=== PATIENT | male | born 1940 | race Caucasian/White ===

== ENCOUNTER 2017-12-14 15:45 | Inpatient (IN) | payer MEDICARE, OTHER ==
[2017-12-14] MEDS: SOD CHLORIDE 0.9% 1,000 ML IV (16:31)
[2017-12-14 16:41] LABS: ADD MAN DIFF? NO
[2017-12-14 16:43] LABS: BASOPHILS % 0.3 % (0.0-2.0); EOSINOPHILS # 0.1 10^3/ul (0.0-0.5); EOSINOPHILS % 0.4 % (0.0-7.0); HEMATOCRIT 32.1 % (42.0-52.0); HEMOGLOBIN 10.8 g/dl (14.0-18.0); LYMPHOCYTES # 2.5 10^3/ul (0.8-2.9); LYMPHOCYTES % 19.8 % (15.0-51.0); MEAN CORPUSCULAR HEMOGLOBIN 30.1 pg (29.0-33.0); MEAN CORPUSCULAR HGB CONC 33.6 g/dl (32.0-37.0); MEAN CORPUSCULAR VOLUME 89.4 fl (82.0-101.0); MEAN PLATELET VOLUME 11.6 fl (7.4-10.4); MONOCYTES % 7.7 % (0.0-11.0); NEUTROPHILS % 71.4 % (39.0-77.0); PLATELET COUNT 145 10^3/UL (140-415); RED BLOOD COUNT 3.59 10^6/ul (4.70-6.10); RED CELL DISTRIBUTION WIDTH 13.7 % (11.5-14.5)
[2017-12-14 16:43] LABS: WHITE BLOOD COUNT 12.6 10^3/ul (4.8-10.8)
[2017-12-14 16:59] LABS: INR 1.21; PROTIME 15.5 Sec (11.9-14.9); PT RATIO 1.2
[2017-12-14 17:00] LABS: PARTIAL THROMBOPLASTIN TIME 30.6 Sec (25.0-35.0)
[2017-12-14] MEDS ORDERED: AZELASTINE 0.05% 6 ML OPH BOTH EYES (17:30)
[2017-12-14 17:31] LABS: TROPONIN-I 0.038 ng/ml (0.00-0.12)
[2017-12-14 17:34] LABS: ANION GAP 19 (8-16); BLOOD UREA NITROGEN 39 mg/dl (7-20); CARBON DIOXIDE 24 mmol/L (21-31); CHLORIDE 108 mmol/L (97-110); CREATININE 1.83 mg/dl (0.61-1.24); GLUCOSE 228 mg/dl (70-220); POTASSIUM 4.9 mmol/L (3.5-5.1); SODIUM 146 mmol/L (135-144)
[2017-12-14 18:25] LABS: ADD UMIC YES; UR ASCORBIC ACID NEGATIVE (NEGATIVE); UR BACTERIA FEW /HPF (NONE SEEN); UR BILIRUBIN (Dip) NEGATIVE (NEGATIVE); UR BLOOD (Dip) 1+ mg/dL (NEGATIVE); UR CLARITY CLOUDY (CLEAR); UR COLOR YELLOW (YELLOW); UR GLUCOSE (Dip) 1+ mg/dL (NEGATIVE); UR KETONES (Dip) NEGATIVE (NEGATIVE); UR LEUKOCYTE ESTERASE (Dip) 3+ Leu/ul (NEGATIVE); UR NITRITE (Dip) NEGATIVE (NEGATIVE); UR RBC 1 /HPF (0-5); UR SPECIFIC GRAVITY (Dip) 1.015 (1.003-1.030); UR TOTAL PROTEIN (Dip) 2+ mg/dl (NEGATIVE); UR UROBILINOGEN (Dip) NEGATIVE (NEGATIVE); UR WBC 178 /HPF (0-5)
[2017-12-14] MEDS ORDERED: ACETAMINOPHEN 325 MG TAB PO (18:30)
[2017-12-14] MEDS ORDERED: NA PHOSPHATE/BIPHOS 133 ML ENEMA PR (18:30)
[2017-12-14] MEDS ORDERED: MAGNESIUM HYDROXIDE 30ML CUP PO (18:30)
[2017-12-14] MEDS ORDERED: BISACODYL (EC) 5 MG TAB PO (18:30)
[2017-12-14] MEDS ORDERED: NACL 0.9% 3 ML SYG IV (18:30)
[2017-12-14] MEDS ORDERED: BISACODYL 10 MG SUPP PR (18:30)
[2017-12-14] MEDS ORDERED: ONDANSETRON 4 MG TAB PO (18:30)
[2017-12-14] MEDS ORDERED: DOCUSATE SODIUM 100 MG CAP PO (18:30)
[2017-12-14] MEDS ORDERED: DEXTROSE 50% 50 ML SYRINGE IV ×2 (19:30)
[2017-12-14] MEDS ORDERED: GLUCOSE GEL 15 GRAM TUBE PO ×2 (19:30)
[2017-12-14] MEDS ORDERED: GLUCOSE GEL 15 GRAM TUBE BUCCAL (19:30)
[2017-12-14] MEDS ORDERED: GLUCAGON 1 MG INJ IM (19:30)
[2017-12-14 19:40] LABS: CREATININE,URINE RANDOM 191.21 mg/dl (20-370)
[2017-12-14] MEDS: INSULIN ASPART [NOVOLOG] 3 ML PEN SC (21:28)
[2017-12-14] MEDS: FISH OIL 1,000 MG CAP PO (21:30)
[2017-12-14] MEDS: ATORVASTATIN 80 MG TAB PO (21:30)
[2017-12-14] MEDS: morphine 2 MG INJ IV (23:09)
[2017-12-15] MEDS: ACCU-CHEK XX (02:00)
[2017-12-15] MEDS: CEFTRIAXONE 1 GM/50 ML (PMX) 50 ML IVPB (02:08)
[2017-12-15] MEDS: morphine 2 MG INJ IV (03:33)
[2017-12-15 06:43] LABS: ADD MAN DIFF? NO
[2017-12-15 06:47] LABS: BASOPHIL # 0.1 10^3/ul (0.0-0.1); BASOPHILS % 0.4 % (0.0-2.0); EOSINOPHILS # 0.1 10^3/ul (0.0-0.5); EOSINOPHILS % 0.6 % (0.0-7.0); HEMOGLOBIN 9.9 g/dl (14.0-18.0); LYMPHOCYTES # 2.4 10^3/ul (0.8-2.9); LYMPHOCYTES % 21.7 % (15.0-51.0); MEAN CORPUSCULAR HEMOGLOBIN 29.8 pg (29.0-33.0); MEAN CORPUSCULAR VOLUME 90.4 fl (82.0-101.0); MEAN PLATELET VOLUME 12.2 fl (7.4-10.4); MONOCYTE # 0.8 10^3/ul (0.3-0.9); MONOCYTES % 6.9 % (0.0-11.0); NEUTROPHIL # 7.8 10^3/ul (1.6-7.5); PLATELET COUNT 148 10^3/UL (140-415); RED BLOOD COUNT 3.32 10^6/ul (4.70-6.10); RED CELL DISTRIBUTION WIDTH 14.1 % (11.5-14.5)
[2017-12-15 06:47] LABS: WHITE BLOOD COUNT 11.2 10^3/ul (4.8-10.8)
[2017-12-15 07:08] LABS: ANION GAP 16 (8-16); BLOOD UREA NITROGEN 46 mg/dl (7-20); CALCIUM 8.7 mg/dl (8.4-10.2); CARBON DIOXIDE 26 mmol/L (21-31); CHLORIDE 110 mmol/L (97-110); CREATININE 1.76 mg/dl (0.61-1.24); GLUCOSE 181 mg/dl (70-220); MAGNESIUM 1.7 mg/dl (1.7-2.5); PHOSPHORUS 3.8 mg/dl (2.5-4.9); POTASSIUM 5.4 mmol/L (3.5-5.1); SODIUM 147 mmol/L (135-144)
[2017-12-15 07:23] LABS: HEMOGLOBIN A1C 6.4 % (0-5.9)
[2017-12-15] MEDS: INSULIN ASPART [NOVOLOG] 3 ML PEN SC ×4 (09:07→21:20)
[2017-12-15] MEDS: ENOXAPARIN 40 MG/0.4 ML SYG SC (09:08)
[2017-12-15] MEDS: ASPIRIN (EC) 81 MG TAB PO (09:08)
[2017-12-15] MEDS: FISH OIL 1,000 MG CAP PO ×3 (09:08→21:21)
[2017-12-15] MEDS: TOLTERODINE (SR) 4 MG CAP PO (09:09)
[2017-12-15] MEDS: VALSARTAN 160 MG TAB PO (09:09)
[2017-12-15] MEDS: SOD CHLORIDE 0.9% 1,000 ML IV (16:44)
[2017-12-15] MEDS: HYDROCODONE/APAP (5/325) TAB PO (16:45)
[2017-12-15 17:24] LABS: SODIUM,URINE RANDOM 56 mmol/L (30-90)
[2017-12-15 17:35] LABS: ADD UMIC YES; UR ASCORBIC ACID NEGATIVE (NEGATIVE); UR BILIRUBIN (Dip) NEGATIVE (NEGATIVE); UR BLOOD (Dip) 3+ mg/dL (NEGATIVE); UR CLARITY TURBID (CLEAR); UR COLOR RED (YELLOW); UR GLUCOSE (Dip) 1+ mg/dL (NEGATIVE); UR KETONES (Dip) NEGATIVE (NEGATIVE); UR LEUKOCYTE ESTERASE (Dip) 3+ Leu/ul (NEGATIVE); UR NITRITE (Dip) NEGATIVE (NEGATIVE); UR RBC > 182 /HPF (0-5); UR SPECIFIC GRAVITY (Dip) 1.008 (1.003-1.030); UR TOTAL PROTEIN (Dip) 1+ mg/dl (NEGATIVE); UR UROBILINOGEN (Dip) NEGATIVE (NEGATIVE); UR WBC > 182 /HPF (0-5)
[2017-12-15] MEDS: ATORVASTATIN 80 MG TAB PO (21:21)
[2017-12-15] MEDS: TAMSULOSIN (SR) 0.4 MG CAP PO (21:21)
[2017-12-16] MEDS: SOD CHLORIDE 0.9% 1,000 ML IV (00:57)
[2017-12-16] MEDS: ACCU-CHEK XX (01:48)
[2017-12-16 05:51] LABS: ADD MAN DIFF? NO
[2017-12-16 06:04] LABS: BASOPHILS % 0.2 % (0.0-2.0); EOSINOPHILS % 0.2 % (0.0-7.0); HEMATOCRIT 26.4 % (42.0-52.0); HEMOGLOBIN 8.7 g/dl (14.0-18.0); LYMPHOCYTES % 20.9 % (15.0-51.0); MEAN CORPUSCULAR HEMOGLOBIN 29.6 pg (29.0-33.0); MEAN CORPUSCULAR VOLUME 89.8 fl (82.0-101.0); MEAN PLATELET VOLUME 12.4 fl (7.4-10.4); MONOCYTE # 0.8 10^3/ul (0.3-0.9); MONOCYTES % 8.3 % (0.0-11.0); NEUTROPHIL # 6.6 10^3/ul (1.6-7.5); NEUTROPHILS % 70.1 % (39.0-77.0); PLATELET COUNT 146 10^3/UL (140-415); RED BLOOD COUNT 2.94 10^6/ul (4.70-6.10)
[2017-12-16 06:04] LABS: WHITE BLOOD COUNT 9.4 10^3/ul (4.8-10.8)
[2017-12-16 06:17] LABS: ANION GAP 18 (8-16); BLOOD UREA NITROGEN 45 mg/dl (7-20); CALCIUM 8.6 mg/dl (8.4-10.2); CARBON DIOXIDE 24 mmol/L (21-31); CHLORIDE 111 mmol/L (97-110); CREATININE 1.53 mg/dl (0.61-1.24); GLUCOSE 188 mg/dl (70-220); MAGNESIUM 1.7 mg/dl (1.7-2.5); PHOSPHORUS 3.5 mg/dl (2.5-4.9); POTASSIUM 4.9 mmol/L (3.5-5.1); SODIUM 148 mmol/L (135-144)
[2017-12-16] MEDS: INSULIN ASPART [NOVOLOG] 3 ML PEN SC ×4 (08:52→20:17)
[2017-12-16] MEDS: VALSARTAN 160 MG TAB PO (08:54)
[2017-12-16] MEDS: TOLTERODINE (SR) 4 MG CAP PO (08:54)
[2017-12-16] MEDS: ASPIRIN (EC) 81 MG TAB PO (08:54)
[2017-12-16] MEDS: ENOXAPARIN 40 MG/0.4 ML SYG SC (08:55)
[2017-12-16] MEDS: FISH OIL 1,000 MG CAP PO ×3 (09:00→20:02)
[2017-12-16] MEDS: SOD CHLORIDE 0.45% 1,000 ML IV (14:39)
[2017-12-16] MEDS: CEFTRIAXONE 1 GM/50 ML (PMX) 50 ML IVPB (14:39)
[2017-12-16] MEDS: TAMSULOSIN (SR) 0.4 MG CAP PO (20:02)
[2017-12-16] MEDS: ATORVASTATIN 80 MG TAB PO (20:02)
[2017-12-16 22:15] LABS: IMMEDIATE SPIN CROSSMATCH 1 3
[2017-12-17] MEDS: ACETAMINOPHEN 650 MG SUPP PR (01:45)
[2017-12-17] MEDS: ACCU-CHEK XX (02:15)
[2017-12-17 07:31] LABS: ADD MAN DIFF? NO
[2017-12-17 07:38] LABS: WHITE BLOOD COUNT 10.7 10^3/ul (4.8-10.8)
[2017-12-17 07:38] LABS: BASOPHILS % 0.2 % (0.0-2.0); EOSINOPHILS % 0.3 % (0.0-7.0); HEMATOCRIT 31.8 % (42.0-52.0); HEMOGLOBIN 10.8 g/dl (14.0-18.0); LYMPHOCYTES # 2.4 10^3/ul (0.8-2.9); LYMPHOCYTES % 22.9 % (15.0-51.0); MEAN CORPUSCULAR VOLUME 88.3 fl (82.0-101.0); MEAN PLATELET VOLUME 12.1 fl (7.4-10.4); MONOCYTE # 0.8 10^3/ul (0.3-0.9); MONOCYTES % 7.5 % (0.0-11.0); NEUTROPHIL # 7.4 10^3/ul (1.6-7.5); NEUTROPHILS % 68.9 % (39.0-77.0); PLATELET COUNT 149 10^3/UL (140-415)
[2017-12-17] MEDS: INSULIN ASPART [NOVOLOG] 3 ML PEN SC ×4 (08:00→21:00)
[2017-12-17 08:19] LABS: ANION GAP 20 (8-16); BLOOD UREA NITROGEN 48 mg/dl (7-20); CALCIUM 8.8 mg/dl (8.4-10.2); CARBON DIOXIDE 22 mmol/L (21-31); CHLORIDE 111 mmol/L (97-110); CREATININE 1.44 mg/dl (0.61-1.24); GLUCOSE 181 mg/dl (70-220); MAGNESIUM 1.9 mg/dl (1.7-2.5); PHOSPHORUS 4.1 mg/dl (2.5-4.9); POTASSIUM 4.8 mmol/L (3.5-5.1); SODIUM 148 mmol/L (135-144)
[2017-12-17] MEDS: TOLTERODINE (SR) 4 MG CAP PO (09:00)
[2017-12-17] MEDS: ENOXAPARIN 40 MG/0.4 ML SYG SC (09:00)
[2017-12-17] MEDS: FISH OIL 1,000 MG CAP PO ×3 (09:00→21:00)
[2017-12-17] MEDS ORDERED: INFLUENZA VIRUS VACCINE 0.5 ML (DISPENSING) IM* (09:00)
[2017-12-17] MEDS: ASPIRIN (EC) 81 MG TAB PO (09:00)
[2017-12-17] MEDS: CEFAZOLIN 1 GM/50 ML (PMX) 50 ML IVPB (14:47)
[2017-12-17] MEDS ORDERED: MIDAZOLAM 1 MG/ML 2 ML INJ (18:00)
[2017-12-17] MEDS ORDERED: POLYMYXIN/BACITRACIN 1L IRRIG (18:11)
[2017-12-17] MEDS ORDERED: PHENYLephrine (100 MCG/ML) 5ML SYG ×2 (19:19)
[2017-12-17] MEDS ORDERED: PHENYLephrine 10 MG INJ (19:19)
[2017-12-17] MEDS: POLYMYXIN/BACITRACIN 1L IRRIG IRR (19:35)
[2017-12-17] MEDS ORDERED: morphine 2 MG INJ IV (20:30)
[2017-12-17] MEDS ORDERED: CEFAZOLIN 1 GM/50 ML (PMX) 50 ML IVPB (20:30)
[2017-12-17] MEDS ORDERED: HYDROCODONE/APAP (5/325) TAB PO (20:30)
[2017-12-17] MEDS ORDERED: ONDANSETRON 4 MG INJ (20:34)
[2017-12-17] MEDS ORDERED: NEOSTIGMINE 3 MG/3 ML SYRINGE (20:34)
[2017-12-17] MEDS ORDERED: ROPIVACAINE 0.5 % 30 ML VIAL (20:34)
[2017-12-17] MEDS ORDERED: ROCURONIUM 50 MG INJ (20:34)
[2017-12-17] MEDS ORDERED: ETOMIDATE 20 MG INJ (20:34)
[2017-12-17] MEDS ORDERED: CEFAZOLIN 1 GM INJ (20:34)
[2017-12-17] MEDS ORDERED: GLYCOPYRROLATE 0.4 MG INJ (20:34)
[2017-12-17] MEDS ORDERED: LIDOCAINE 2% (SDV) 5 ML INJ (20:34)
[2017-12-17] MEDS: TAMSULOSIN (SR) 0.4 MG CAP PO (21:00)
[2017-12-17] MEDS ORDERED: FENTAnyl 50 MCG/ML VIAL IV (21:00)
[2017-12-17] MEDS ORDERED: DIPHENHYDRAMINE 50 MG INJ IV (21:00)
[2017-12-17] MEDS ORDERED: ONDANSETRON 4 MG INJ IV (21:00)
[2017-12-17] MEDS ORDERED: HYDROmorphONE (0.2 MG/ML) 10ML SYG IV (21:00)
[2017-12-17] MEDS ORDERED: NALOXONE (0.4 MG/ML) INJ IV (21:00)
[2017-12-17] MEDS: ATORVASTATIN 80 MG TAB PO (21:00)
[2017-12-17 21:22] LABS: ADD MAN DIFF? NO
[2017-12-17 21:24] LABS: WHITE BLOOD COUNT 10.9 10^3/ul (4.8-10.8)
[2017-12-17 21:24] LABS: BASOPHILS % 0.4 % (0.0-2.0); EOSINOPHILS # 0.1 10^3/ul (0.0-0.5); EOSINOPHILS % 1.2 % (0.0-7.0); HEMATOCRIT 35.2 % (42.0-52.0); HEMOGLOBIN 11.9 g/dl (14.0-18.0); LYMPHOCYTES # 2.5 10^3/ul (0.8-2.9); LYMPHOCYTES % 23.1 % (15.0-51.0); MEAN CORPUSCULAR HEMOGLOBIN 30.4 pg (29.0-33.0); MEAN CORPUSCULAR HGB CONC 33.8 g/dl (32.0-37.0); MEAN CORPUSCULAR VOLUME 89.8 fl (82.0-101.0); MEAN PLATELET VOLUME 11.6 fl (7.4-10.4); MONOCYTE # 0.9 10^3/ul (0.3-0.9); NEUTROPHIL # 7.3 10^3/ul (1.6-7.5); PLATELET COUNT 158 10^3/UL (140-415); RED BLOOD COUNT 3.92 10^6/ul (4.70-6.10); RED CELL DISTRIBUTION WIDTH 14.4 % (11.5-14.5)
[2017-12-18] MEDS: CEFAZOLIN 1 GM/50 ML (PMX) 50 ML IVPB ×3 (00:01→13:32)
[2017-12-18] MEDS: SOD CHLORIDE 0.9% 1,000 ML IV ×2 (00:53→08:56)
[2017-12-18] MEDS: ACCU-CHEK XX (02:00)
[2017-12-18 05:52] LABS: ADD MAN DIFF? NO
[2017-12-18 06:00] LABS: WHITE BLOOD COUNT 8.5 10^3/ul (4.8-10.8)
[2017-12-18 06:00] LABS: BASOPHILS % 0.2 % (0.0-2.0); EOSINOPHILS # 0.1 10^3/ul (0.0-0.5); EOSINOPHILS % 1.4 % (0.0-7.0); HEMATOCRIT 32.1 % (42.0-52.0); HEMOGLOBIN 10.8 g/dl (14.0-18.0); LYMPHOCYTES # 1.7 10^3/ul (0.8-2.9); MEAN CORPUSCULAR HGB CONC 33.6 g/dl (32.0-37.0); MEAN CORPUSCULAR VOLUME 89.2 fl (82.0-101.0); MEAN PLATELET VOLUME 12.2 fl (7.4-10.4); MONOCYTE # 0.6 10^3/ul (0.3-0.9); MONOCYTES % 6.4 % (0.0-11.0); NEUTROPHIL # 6.1 10^3/ul (1.6-7.5); NEUTROPHILS % 71.6 % (39.0-77.0); PLATELET COUNT 153 10^3/UL (140-415); RED CELL DISTRIBUTION WIDTH 14.3 % (11.5-14.5)
[2017-12-18 06:18] LABS: ANION GAP 14 (8-16); BLOOD UREA NITROGEN 44 mg/dl (7-20); CALCIUM 8.7 mg/dl (8.4-10.2); CARBON DIOXIDE 24 mmol/L (21-31); CHLORIDE 113 mmol/L (97-110); GLUCOSE 173 mg/dl (70-220); POTASSIUM 4.9 mmol/L (3.5-5.1); SODIUM 146 mmol/L (135-144)
[2017-12-18 06:33] LABS: INR 1.31; PROTIME 16.5 Sec (11.9-14.9); PT RATIO 1.3
[2017-12-18 07:01] LABS: PHOSPHORUS 3.5 mg/dl (2.5-4.9)
[2017-12-18 07:01] LABS: MAGNESIUM 1.8 mg/dl (1.7-2.5)
[2017-12-18] MEDS: INSULIN ASPART [NOVOLOG] 3 ML PEN SC ×4 (09:04→20:22)
[2017-12-18] MEDS: ENOXAPARIN 40 MG/0.4 ML SYG SC (09:05)
[2017-12-18] MEDS: TOLTERODINE (SR) 4 MG CAP PO (09:06)
[2017-12-18] MEDS: ASPIRIN (EC) 81 MG TAB PO (09:06)
[2017-12-18] MEDS: FISH OIL 1,000 MG CAP PO ×3 (09:06→20:13)
[2017-12-18] MEDS: ATORVASTATIN 80 MG TAB PO (21:00)
[2017-12-18] MEDS: TAMSULOSIN (SR) 0.4 MG CAP PO (21:00)
[2017-12-18] MEDS: CEPHALEXIN 500 MG CAP PO (21:00)
[2017-12-19] MEDS: ACCU-CHEK XX (02:00)
[2017-12-19 06:12] LABS: ADD MAN DIFF? NO
[2017-12-19 06:15] LABS: BASOPHILS % 0.3 % (0.0-2.0); EOSINOPHILS # 0.2 10^3/ul (0.0-0.5); EOSINOPHILS % 2.5 % (0.0-7.0); HEMATOCRIT 32.6 % (42.0-52.0); HEMOGLOBIN 10.6 g/dl (14.0-18.0); LYMPHOCYTES # 1.7 10^3/ul (0.8-2.9); LYMPHOCYTES % 22.2 % (15.0-51.0); MEAN CORPUSCULAR HEMOGLOBIN 29.5 pg (29.0-33.0); MEAN CORPUSCULAR HGB CONC 32.5 g/dl (32.0-37.0); MEAN CORPUSCULAR VOLUME 90.8 fl (82.0-101.0); MEAN PLATELET VOLUME 11.9 fl (7.4-10.4); MONOCYTE # 0.6 10^3/ul (0.3-0.9); MONOCYTES % 7.6 % (0.0-11.0); NEUTROPHIL # 5.2 10^3/ul (1.6-7.5); PLATELET COUNT 151 10^3/UL (140-415); RED BLOOD COUNT 3.59 10^6/ul (4.70-6.10); RED CELL DISTRIBUTION WIDTH 14.3 % (11.5-14.5)
[2017-12-19 06:15] LABS: WHITE BLOOD COUNT 7.7 10^3/ul (4.8-10.8)
[2017-12-19 06:35] LABS: INR 1.33; PROTIME 16.7 Sec (11.9-14.9); PT RATIO 1.3
[2017-12-19 06:47] LABS: MAGNESIUM 1.8 mg/dl (1.7-2.5)
[2017-12-19 06:47] LABS: PHOSPHORUS 2.5 mg/dl (2.5-4.9)
[2017-12-19 06:50] LABS: ANION GAP 14 (8-16); BLOOD UREA NITROGEN 37 mg/dl (7-20); CALCIUM 8.8 mg/dl (8.4-10.2); CARBON DIOXIDE 25 mmol/L (21-31); CHLORIDE 111 mmol/L (97-110); CREATININE 1.36 mg/dl (0.61-1.24); GLUCOSE 165 mg/dl (70-220); POTASSIUM 4.4 mmol/L (3.5-5.1); SODIUM 146 mmol/L (135-144)
[2017-12-19] MEDS: ASPIRIN (EC) 81 MG TAB PO (08:49)
[2017-12-19] MEDS: CEPHALEXIN 500 MG CAP PO ×2 (08:49→20:59)
[2017-12-19] MEDS: FISH OIL 1,000 MG CAP PO ×3 (08:49→20:58)
[2017-12-19] MEDS: TOLTERODINE (SR) 4 MG CAP PO (08:49)
[2017-12-19] MEDS: ENOXAPARIN 40 MG/0.4 ML SYG SC (08:52)
[2017-12-19] MEDS: INSULIN ASPART [NOVOLOG] 3 ML PEN SC ×4 (08:54→20:57)
[2017-12-19] MEDS: TAMSULOSIN (SR) 0.4 MG CAP PO (20:59)
[2017-12-19] MEDS: ATORVASTATIN 80 MG TAB PO (20:59)
[2017-12-20] MEDS: ACCU-CHEK XX (01:27)
[2017-12-20 06:10] LABS: ADD MAN DIFF? NO
[2017-12-20 06:19] LABS: BASOPHILS % 0.4 % (0.0-2.0); EOSINOPHILS # 0.3 10^3/ul (0.0-0.5); EOSINOPHILS % 3.1 % (0.0-7.0); HEMATOCRIT 30.4 % (42.0-52.0); LYMPHOCYTES % 24.8 % (15.0-51.0); MEAN CORPUSCULAR HEMOGLOBIN 29.6 pg (29.0-33.0); MEAN CORPUSCULAR HGB CONC 32.9 g/dl (32.0-37.0); MEAN CORPUSCULAR VOLUME 89.9 fl (82.0-101.0); MEAN PLATELET VOLUME 12.4 fl (7.4-10.4); MONOCYTE # 0.5 10^3/ul (0.3-0.9); MONOCYTES % 6.4 % (0.0-11.0); NEUTROPHIL # 5.2 10^3/ul (1.6-7.5); NEUTROPHILS % 64.9 % (39.0-77.0); PLATELET COUNT 181 10^3/UL (140-415); RED BLOOD COUNT 3.38 10^6/ul (4.70-6.10); RED CELL DISTRIBUTION WIDTH 14.1 % (11.5-14.5)
[2017-12-20 06:19] LABS: WHITE BLOOD COUNT 7.9 10^3/ul (4.8-10.8)
[2017-12-20 06:35] LABS: INR 1.37; PROTIME 17.1 Sec (11.9-14.9); PT RATIO 1.3
[2017-12-20 06:46] LABS: MAGNESIUM 1.8 mg/dl (1.7-2.5)
[2017-12-20 06:46] LABS: PHOSPHORUS 2.4 mg/dl (2.5-4.9)
[2017-12-20 07:11] LABS: ANION GAP 12 (8-16); BLOOD UREA NITROGEN 34 mg/dl (7-20); CALCIUM 8.7 mg/dl (8.4-10.2); CARBON DIOXIDE 28 mmol/L (21-31); CHLORIDE 107 mmol/L (97-110); CREATININE 1.23 mg/dl (0.61-1.24); GLUCOSE 164 mg/dl (70-220); POTASSIUM 4.2 mmol/L (3.5-5.1); SODIUM 143 mmol/L (135-144)
[2017-12-20] MEDS: INSULIN ASPART [NOVOLOG] 3 ML PEN SC ×4 (08:54→20:35)
[2017-12-20] MEDS: CEPHALEXIN 500 MG CAP PO ×2 (08:55→20:32)
[2017-12-20] MEDS: FISH OIL 1,000 MG CAP PO ×3 (08:55→20:32)
[2017-12-20] MEDS: ASPIRIN (EC) 81 MG TAB PO (08:55)
[2017-12-20] MEDS: ENOXAPARIN 40 MG/0.4 ML SYG SC (08:55)
[2017-12-20] MEDS: TOLTERODINE (SR) 4 MG CAP PO (08:55)
[2017-12-20] MEDS: POTASSIUM PHOSPHATE 20 MEQ in SOD CHLORIDE 0.9% 250 ML IVPB (17:23)
[2017-12-20] MEDS: ATORVASTATIN 80 MG TAB PO (20:32)
[2017-12-20] MEDS: TAMSULOSIN (SR) 0.4 MG CAP PO (20:32)
[2017-12-21] MEDS: ACCU-CHEK XX (02:00)
[2017-12-21 07:01] LABS: BLOOD UREA NITROGEN 32 mg/dl (7-20); CALCIUM 8.7 mg/dl (8.4-10.2); CARBON DIOXIDE 25 mmol/L (21-31); CHLORIDE 107 mmol/L (97-110); CREATININE 1.13 mg/dl (0.61-1.24); GLUCOSE 200 mg/dl (70-220); SODIUM 144 mmol/L (135-144)
[2017-12-21 07:06] LABS: INR 1.19; PROTIME 15.3 Sec (11.9-14.9); PT RATIO 1.2
[2017-12-21 08:00] LABS: ANION GAP 16 (8-16)
[2017-12-21 08:02] LABS: POTASSIUM 4.1 mmol/L (3.5-5.1)
[2017-12-21] MEDS: ENOXAPARIN 40 MG/0.4 ML SYG SC ×2 (09:00→09:07)
[2017-12-21] MEDS: INSULIN ASPART [NOVOLOG] 3 ML PEN SC ×7 (09:06→20:34)
[2017-12-21] MEDS: CEPHALEXIN 500 MG CAP PO ×2 (09:07→20:32)
[2017-12-21] MEDS: TOLTERODINE (SR) 4 MG CAP PO (09:08)
[2017-12-21] MEDS: ASPIRIN (EC) 81 MG TAB PO (09:08)
[2017-12-21] MEDS: FISH OIL 1,000 MG CAP PO ×3 (09:08→20:32)
[2017-12-21] MEDS ORDERED: INSULIN GLARGINE [LANtus] 3 ML PEN SC (20:00)
[2017-12-21] MEDS: ATORVASTATIN 80 MG TAB PO (20:32)
[2017-12-21] MEDS: TAMSULOSIN (SR) 0.4 MG CAP PO (20:32)
[2017-12-21] MEDS: INSULIN GLARGINE [LANtus] 3 ML PEN SC (20:42)
[2017-12-22] MEDS: ACCU-CHEK XX (02:00)
[2017-12-22 07:03] LABS: INR 1.22; PROTIME 15.6 Sec (11.9-14.9); PT RATIO 1.2
[2017-12-22 07:10] LABS: ANION GAP 12 (8-16); BLOOD UREA NITROGEN 31 mg/dl (7-20); CALCIUM 8.6 mg/dl (8.4-10.2); CARBON DIOXIDE 28 mmol/L (21-31); CHLORIDE 106 mmol/L (97-110); CREATININE 1.09 mg/dl (0.61-1.24); GLUCOSE 159 mg/dl (70-220); POTASSIUM 4.4 mmol/L (3.5-5.1); SODIUM 142 mmol/L (135-144)
[2017-12-22] MEDS: CEPHALEXIN 500 MG CAP PO ×2 (09:00→20:27)
[2017-12-22] MEDS: FISH OIL 1,000 MG CAP PO ×3 (09:01→20:26)
[2017-12-22] MEDS: ASPIRIN (EC) 81 MG TAB PO (09:01)
[2017-12-22] MEDS: TOLTERODINE (SR) 4 MG CAP PO (09:01)
[2017-12-22] MEDS: ENOXAPARIN 40 MG/0.4 ML SYG SC (09:05)
[2017-12-22] MEDS: INSULIN ASPART [NOVOLOG] 3 ML PEN SC ×4 (09:06→20:26)
[2017-12-22] MEDS: INSULIN GLARGINE [LANtus] 3 ML PEN SC (20:25)
[2017-12-22] MEDS: TAMSULOSIN (SR) 0.4 MG CAP PO (20:26)
[2017-12-22] MEDS: NEOMYC/POLYMYX/BACIT 30 GM OINT TOP (20:26)
[2017-12-22] MEDS: BALSAM PERU/CASTOR OIL 60 GM TUBE TOP (20:27)
[2017-12-22] MEDS: ATORVASTATIN 80 MG TAB PO (20:27)
== END 2017-12-22 21:05 | DRG 481 ==
LOC: E/R 15:45 → PP2 17:55
PROC: 0QS606Z Reposition Right Upper Femur with Intramedullary Internal Fixation Device, Open Approach (ICD-10-PCS; principal; 2017-12-17 16:30)
PROC: 30233N1 Transfusion of Nonautologous Red Blood Cells into Peripheral Vein, Percutaneous Approach (ICD-10-PCS; 2017-12-17 18:18)
DX: S72.141A Displaced intertrochanteric fracture of right femur, initial encounter for closed fracture (principal); N17.9 Acute kidney failure, unspecified; E87.0 Hyperosmolality and hypernatremia; I69.351 Hemiplegia and hemiparesis following cerebral infarction affecting right dominant side; E11.22 Type 2 diabetes mellitus with diabetic chronic kidney disease; F03.90 Unspecified dementia, unspecified severity, without behavioral disturbance, psychotic disturbance, mood disturbance, and anxiety; I25.10 Atherosclerotic heart disease of native coronary artery without angina pectoris; Z95.5 Presence of coronary angioplasty implant and graft; N40.0 Benign prostatic hyperplasia without lower urinary tract symptoms; I35.0 Nonrheumatic aortic (valve) stenosis; E78.5 Hyperlipidemia, unspecified; I12.9 Hypertensive chronic kidney disease with stage 1 through stage 4 chronic kidney disease, or unspecified chronic kidney disease; N18.9 Chronic kidney disease, unspecified; E11.65 Type 2 diabetes mellitus with hyperglycemia; D64.9 Anemia, unspecified; E66.01 Morbid (severe) obesity due to excess calories; Z68.34 Body mass index [BMI] 34.0-34.9, adult; E11.51 Type 2 diabetes mellitus with diabetic peripheral angiopathy without gangrene; W01.0XXA Fall on same level from slipping, tripping and stumbling without subsequent striking against object, initial encounter; Y92.009 Unspecified place in unspecified non-institutional (private) residence as the place of occurrence of the external cause
CPT/HCPCS: 36415; 36430; 71045; 72170; 73510; 73530; 76775; 80048; 81001; 81003; 82540; 82962; 83036; 83735; 84100; 84155; 84300; 84484; 85025; 85610; 85730; 86644; 86850; 86900; 86901; 86920; 86945; 87086; 92526; 92610; 93005; 93306; 97110; 97163; 97530; 99285-25